=== PATIENT | male | born 1980 | race Caucasian/White ===

== ENCOUNTER 2021-07-18 10:15 | Emergency (ER) | payer OTHER ==
[2021-07-18] MEDS ORDERED: IBUPROFEN600 MG PO (12:54)
[2021-07-18] MEDS ORDERED: NORFLEX 100 MG100 MG PO (12:54)
== END 2021-07-18 13:05 | disposition home or self-care (01) ==
LOC: ER1 10:15
DX: S16.1XXA Strain of muscle, fascia and tendon at neck level, initial encounter (principal); Z87.891 Personal history of nicotine dependence; V49.9XXA Car occupant (driver) (passenger) injured in unspecified traffic accident, initial encounter; W22.10XA Striking against or struck by unspecified automobile airbag, initial encounter
CPT/HCPCS: 71045; 72040; 99283